=== PATIENT | female | born 2000 | race Caucasian/White ===

== ENCOUNTER 2018-07-26 18:47 | Emergency (ER) | payer SELFPAY ==
[~2018-07-26] VITALS: Ht 162.6 cm; Wt 149.8 kg
[2018-07-26] MEDS ORDERED: ACETAMINOPHEN 500 MG TABLET PO ONE (19:30)
[2018-07-26] MEDS ORDERED: IBUPROFEN 200 MG TABLET PO ONE (19:30)
[2018-07-26] MEDS ORDERED: IBUPROFEN 200 MG TABLET ONE (19:38)
[2018-07-26] MEDS ORDERED: ACETAMINOPHEN 500 MG TABLET ONE (19:38)
[2018-07-26 19:43] LABS: BASOPHILS # (AUTO) 0.07 x10^3/uL (0-0.3); BASOPHILS % (AUTO) 1 % (0-1); EOSINOPHILS % (AUTO) 1 % (1-7); LYMPHOCYTES # (AUTO) 1.97 x10^3/uL (1-6.1); LYMPHOCYTES % (AUTO) 23 % (22-44); MD NO; MEAN CORPUSCULAR HEMOGLOBIN 27.9 pg (27.0-34.8); MEAN CORPUSCULAR HGB CONC 33.4 g/dL (32.4-35.8); MEAN CORPUSCULAR VOLUME 83.7 fL (80-100); MEAN PLATELET VOLUME 9.1 fL (7.4-10.4); MONOCYTES # (AUTO) 0.63 x10^3/uL (0-1.4); MONOCYTES % (AUTO) 7 % (2-9); NEUTROPHILS # (AUTO) 5.88 x10^3/uL (1.8-8.0); NEUTROPHILS % (AUTO) 68 % (42-75); PLATELET COUNT 224 x10^3/uL (130-400); RED BLOOD COUNT 4.76 x10^6/uL (3.82-5.3); RED CELL DISTRIBUTION WIDTH 12.9 % (9.6-15.2)
[2018-07-26 19:52] LABS: ALANINE AMINOTRANSFERASE 43 U/L (12-78); ALBUMIN 3.2 g/dL (3.4-5.0); ANION GAP 9 mmol/L (5-15); CHLORIDE 111 mmol/L (98-107)
[2018-07-26 19:55] LABS: ALKALINE PHOSPHATASE 89 U/L (45-117); BILIRUBIN,TOTAL 0.3 mg/dL (0.2-1.0); TOTAL PROTEIN 7.5 g/dL (6.4-8.2)
[2018-07-26 20:12] LABS: HCG UR SG 1.027 (1.003-1.030)
[2018-07-26] MEDS ORDERED: OMNIPAQUE 350 MG/ML, 100ML BOTTLE ONE (20:31)
[2018-07-26 20:56] VITALS: BP 135/74
== END 2018-07-26 21:30 | disposition home or self-care (01) ==
LOC: ED 21:05
DX: G89.11 Acute pain due to trauma (principal); R10.13 Epigastric pain; F17.200 Nicotine dependence, unspecified, uncomplicated; Y04.8XXA Assault by other bodily force, initial encounter; Y93.89 Activity, other specified; Y92.89 Other specified places as the place of occurrence of the external cause; Y99.8 Other external cause status
CPT/HCPCS: 36415; 71045; 74177; 80053; 81025; 85025; 99285; Q9967

== ENCOUNTER 2019-01-23 11:57 | Emergency (ER) | payer MEDICAID, OTHER ==
[~2019-01-23] VITALS: Ht 162.6 cm; Wt 152.0 kg
[2019-01-23 12:32] VITALS: BP 132/78
[2019-01-23 13:04] LABS: RAPID INFLUENZA A Negative (Negative); RAPID INFLUENZA B Negative (Negative)
--- NOTE | 2019-01-23 13:55 | NUR ---
Patient/Caregiver given discharge instructions and they have confirmed that they understand the instructions. Patient ambulatory with steady gait. pt left with all personal belongings.
== END 2019-01-23 13:58 | disposition home or self-care (01) ==
LOC: ED 13:25
DX: J02.0 Streptococcal pharyngitis (principal); H92.03 Otalgia, bilateral
CPT/HCPCS: 71046; 87400; 87880; 99284

== ENCOUNTER 2019-07-24 23:11 | Emergency (ER) | payer MEDICAID ==
[~2019-07-24] VITALS: Ht 162.6 cm; Wt 130.0 kg
--- NOTE | 2019-07-24 23:15 | NUR ---
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
--- NOTE | 2019-07-24 23:19 | NUR ---
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
--- NOTE | 2019-07-24 23:23 | NUR ---
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
--- NOTE | 2019-07-25 00:15 | NUR ---
PT WITH IV STARTED BLOOD TO LAB AND PT AWARE OF NEED FOR URINE.
[2019-07-25] MEDS ORDERED: DIPHENHYDRAMINE 50 MG/ML, 1ML IVPush ONE (00:30)
[2019-07-25] MEDS ORDERED: SODIUM CHLORIDE FLUSH 10ML SYR IVF ONE (00:30)
[2019-07-25] MEDS ORDERED: PROCHLORPERAZINE 5 MG/ML, 2ML IVPush ONE (00:30)
[2019-07-25] MEDS ORDERED: KETOROLAC 30 MG/1 ML IVPush ONE (00:30)
--- NOTE | 2019-07-25 00:30 | NUR ---
PT MEDICATED ORDERED AND AWAITING C-XRAY AND CT SCAN.
[2019-07-25] MEDS ORDERED: KETOROLAC 30 MG/1 ML ONE (00:40)
[2019-07-25] MEDS ORDERED: DIPHENHYDRAMINE 50 MG/ML, 1ML ONE (00:40)
[2019-07-25] MEDS ORDERED: PROCHLORPERAZINE 5 MG/ML, 2ML ONE (00:40)
[2019-07-25 00:42] LABS: BASOPHILS # (AUTO) 0.05 x10^3/uL (0-0.3); BASOPHILS % (AUTO) 1 % (0-1); EOSINOPHILS # (AUTO) 0.06 x10^3/uL (0-0.8); EOSINOPHILS % (AUTO) 1 % (1-7); LYMPHOCYTES # (AUTO) 1.98 x10^3/uL (1-6.1); LYMPHOCYTES % (AUTO) 20 % (22-44); MD NO; MEAN CORPUSCULAR HEMOGLOBIN 30.3 pg (27.0-34.8); MEAN CORPUSCULAR HGB CONC 32.9 g/dL (32.4-35.8); MEAN CORPUSCULAR VOLUME 92.2 fL (80-100); MEAN PLATELET VOLUME 8.4 fL (7.4-10.4); MONOCYTES % (AUTO) 5 % (2-9); NEUTROPHILS # (AUTO) 7.32 x10^3/uL (1.8-8.0); NEUTROPHILS % (AUTO) 74 % (42-75); PLATELET COUNT 267 x10^3/uL (130-400); RED CELL DISTRIBUTION WIDTH 13.4 % (9.6-15.2)
[2019-07-25 00:56] LABS: ALANINE AMINOTRANSFERASE 36 U/L (12-78); ALBUMIN 3.4 g/dL (3.4-5.0); ANION GAP 7 mmol/L (5-15); CHLORIDE 111 mmol/L (98-107); CREATININE 0.73 mg/dL (0.55-1.02)
[2019-07-25 01:00] LABS: ALKALINE PHOSPHATASE 81 U/L (45-117); BILIRUBIN,TOTAL 0.6 mg/dL (0.2-1.0); TOTAL PROTEIN 7.4 g/dL (6.4-8.2)
--- NOTE | 2019-07-25 01:30 | NUR ---
PT BACK FROM CT SCAN AND AWAITING RESULTS. PT SLEEPING VSS
[2019-07-25 02:37] LABS: MICROSCOPIC NOT IND
[2019-07-25 02:38] LABS: CULTURE INDICATED? NO
[2019-07-25 03:20] VITALS: BP 131/81
[2019-07-25] MEDS ORDERED: OMNIPAQUE 350 MG/ML, 100ML BOTTLE ONE (04:55)
== END 2019-07-25 03:22 | disposition home or self-care (01) ==
LOC: ED 07-25 01:01
DX: J18.9 Pneumonia, unspecified organism (principal); R10.9 Unspecified abdominal pain; F17.200 Nicotine dependence, unspecified, uncomplicated
CPT/HCPCS: 36415; 71045; 71275; 74176; 80053; 81003; 83690; 84703; 85025; 93005; 96374; 96375; 99284; J0780; J1200; J1885; Q9967

== ENCOUNTER 2019-08-02 12:09 | Emergency (ER) | payer MEDICAID ==
[~2019-08-02] VITALS: Ht 162.6 cm; Wt 120.0 kg
[2019-08-02] MEDS ORDERED: ONDANSETRON 2MG/ML, 2ML ONE (12:54)
[2019-08-02] MEDS ORDERED: LORazepam 2 MG/ML, 1ML ONE (12:55)
[2019-08-02] MEDS ORDERED: MAALOX/HYOSCYAMINE/LIDOCAINE 45 ML BTL ONE (12:55)
[2019-08-02] MEDS ORDERED: SODIUM CHLORIDE FLUSH 10ML SYR IVF ONE (13:00)
[2019-08-02] MEDS ORDERED: ONDANSETRON 2MG/ML, 2ML IVPush ONE (13:00)
[2019-08-02] MEDS ORDERED: LORazepam 2 MG/ML, 1ML IVPush ONE (13:00)
[2019-08-02] MEDS ORDERED: MAALOX/HYOSCYAMINE/LIDOCAINE 45 ML BTL PO ONE (13:00)
[2019-08-02] MEDS ORDERED: SODIUM CHLORIDE 0.9% 1,000ML IVBOLUS ONE (13:00)
--- NOTE | 2019-08-02 13:00 | NUR ---
PT WHEELED BACK FROM TRIAGE. CRYING, SHOUTING & CARRYING ON. PT THEN BEGAN SHOUTING/SWEARING AT STAFF & THROWING BELONGINGS. MULT STAFF MEMEBERS C SECURITY AT BS. ATTEMPTED TO REASON C PT, AND EXPLAIN PROCESS OF BEING REMOVED FROM PREMISIS IF BEHAVIOR CONTINUES. PT AMBUALTORY TO RESTROOM, REFUSING TO COME OUT AFTER SEVERAL MINUTES. SECURITY UNLOCKED DOOR, PT REFUSING TO GO BACK TO ROOM. ESCORTED BACK TO ROOM. AGAIN EXPLAINED IF BEHAVIOR DOESNT IMPROVE SHE WILL BE ESCORTED OUT OF ER. PT THEN CALMED DOWN. ALLOWED THIS RN TO START IV, MEDS PER MAR. & TAKEN TO U/S.
--- NOTE | 2019-08-02 13:25 | NUR ---
MEDS PER MAR. TO U/S.
[2019-08-02 13:29] LABS: BASOPHILS # (AUTO) 0.06 x10^3/uL (0-0.3); BASOPHILS % (AUTO) 1 % (0-1); EOSINOPHILS % (AUTO) 1 % (1-7); LYMPHOCYTES # (AUTO) 2.28 x10^3/uL (1-6.1); LYMPHOCYTES % (AUTO) 27 % (22-44); MD NO; MEAN CORPUSCULAR HEMOGLOBIN 30.4 pg (27.0-34.8); MEAN CORPUSCULAR HGB CONC 33.4 g/dL (32.4-35.8); MEAN CORPUSCULAR VOLUME 90.9 fL (80-100); MEAN PLATELET VOLUME 8.2 fL (7.4-10.4); MONOCYTES # (AUTO) 0.55 x10^3/uL (0-1.4); MONOCYTES % (AUTO) 7 % (2-9); NEUTROPHILS # (AUTO) 5.38 x10^3/uL (1.8-8.0); NEUTROPHILS % (AUTO) 64 % (42-75); PLATELET COUNT 272 x10^3/uL (130-400); RED BLOOD COUNT 4.52 x10^6/uL (3.82-5.3); RED CELL DISTRIBUTION WIDTH 13.4 % (9.6-15.2)
[2019-08-02 13:38] LABS: ALANINE AMINOTRANSFERASE 46 U/L (12-78); ALBUMIN 3.6 g/dL (3.4-5.0); ANION GAP 8 mmol/L (5-15); CALCIUM 8.8 mg/dL (8.5-10.1); CHLORIDE 111 mmol/L (98-107); CREATININE 0.71 mg/dL (0.55-1.02)
[2019-08-02 13:43] LABS: ALKALINE PHOSPHATASE 88 U/L (45-117); BILIRUBIN,TOTAL 0.7 mg/dL (0.2-1.0); TOTAL PROTEIN 7.8 g/dL (6.4-8.2)
[2019-08-02 16:54] VITALS: BP 134/56
== END 2019-08-02 17:12 | disposition home or self-care (01) ==
LOC: ED 16:24
DX: O99.611 Diseases of the digestive system complicating pregnancy, first trimester (principal); O99.341 Other mental disorders complicating pregnancy, first trimester; F41.1 Generalized anxiety disorder; R10.13 Epigastric pain; O21.9 Vomiting of pregnancy, unspecified; Z3A.01 Less than 8 weeks gestation of pregnancy
CPT/HCPCS: 36415; 76700; 76830; 80053; 83690; 84702; 85025; 86901; 96361; 96374; 96375; 99284; J2060; J2405; J7030

== ENCOUNTER 2019-09-19 12:55 | Emergency (ER) | payer MEDICAID ==
[~2019-09-19] VITALS: Ht 162.6 cm; Wt 130.0 kg
[2019-09-19 13:14] VITALS: BP 111/74
--- NOTE | 2019-09-19 15:00 | NUR ---
NOT IN LOBBY AT THIS TIME
--- NOTE | 2019-09-19 15:15 | NUR ---
NOT IN LOBBY AT THIS TIME
--- NOTE | 2019-09-19 15:34 | NUR ---
NOT IN LOBBY AT THIS TIME
== END 2019-09-19 15:46 | disposition left against medical advice (07) ==
LOC: ED 15:30
DX: R42 Dizziness and giddiness (principal); Z53.21 Procedure and treatment not carried out due to patient leaving prior to being seen by health care provider

== ENCOUNTER 2019-10-28 03:17 | Emergency (ER) | payer MEDICAID ==
[~2019-10-28] VITALS: Ht 170.2 cm; Wt 134.0 kg
--- NOTE | 2019-10-28 03:20 | NUR ---
PT REPORTS EPIGASTRIC PAIN STARTING EARLIER TONIGHT WITH X2 EPISODES OF VOMITING, PT DENIES OTHER C/O AT THIS TIME. PT REPORTS BEING 17 WEEKS 4 PARA2. PT REPORTS HX OF GASTRIC ULCERS, REPORTS TAKING PEPCID AROUND [id number], GIVEN ZOFRAN 4MG EN ROUTE BY EMS. BS 76 PER EMS. PT CONNECTED TO MONITORING, CALL LIGHT WITHIN REACH, ALL SAFETY MEASURES IN PLACE. FAMILY AT BEDSIDE FOR SUPPORT.
[2019-10-28] MEDS ORDERED: MAALOX/HYOSCYAMINE/LIDOCAINE 45 ML BTL PO ONE (03:30)
[2019-10-28] MEDS ORDERED: MAALOX/HYOSCYAMINE/LIDOCAINE 45 ML BTL ONE (03:31)
[2019-10-28] MEDS ORDERED: ACETAMINOPHEN 325 MG TABLET PO ONE (04:00)
[2019-10-28] MEDS ORDERED: DIPHENHYDRAMINE 50 MG CAPSULE PO STA (04:00)
[2019-10-28] MEDS ORDERED: ACETAMINOPHEN 325 MG TABLET ONE (04:03)
[2019-10-28] MEDS ORDERED: DIPHENHYDRAMINE 25 MG CAPSULE ONE (04:04)
[2019-10-28 04:07] LABS: BASOPHILS # (AUTO) 0.05 x10^3/uL (0-0.1); BASOPHILS % (AUTO) 1 % (0-1); EOSINOPHILS # (AUTO) 0.06 x10^3/uL (0-0.4); EOSINOPHILS % (AUTO) 1 % (1-7); LYMPHOCYTES # (AUTO) 2.45 x10^3/uL (1-3.4); LYMPHOCYTES % (AUTO) 27 % (22-44); MD NO; MEAN CORPUSCULAR HEMOGLOBIN 28.4 pg (27.0-34.8); MEAN CORPUSCULAR HGB CONC 33.7 g/dL (32.4-35.8); MEAN CORPUSCULAR VOLUME 84.4 fL (80-100); MEAN PLATELET VOLUME 8.9 fL (7.4-10.4); MONOCYTES # (AUTO) 0.41 x10^3/uL (0.2-0.8); MONOCYTES % (AUTO) 5 % (2-9); NEUTROPHILS # (AUTO) 6.02 x10^3/uL (1.8-6.8); NEUTROPHILS % (AUTO) 67 % (42-75); PLATELET COUNT 184 x10^3/uL (130-400); RED CELL DISTRIBUTION WIDTH 13.3 % (9.6-15.2)
--- NOTE | 2019-10-28 04:10 | NUR ---
Pt alert and sitting up on gurney. Pt reports some improvement after GI cocktail but reports continued stomach cramping. Pt being medicated with benadryl and tylenol by AZEB Chapa Assumed care from AZEB Chapa
--- NOTE | 2019-10-28 04:10 | NUR ---
REPORT GIVEN TO AZEB EUGENE
--- NOTE | 2019-10-28 04:10 | NUR ---
PT MEDICATED PER MAR, LABS DRAWN.
[2019-10-28 04:15] LABS: ALANINE AMINOTRANSFERASE 12 U/L (12-78); ALBUMIN 2.7 g/dL (3.4-5.0); ANION GAP 9 mmol/L (5-15); CALCIUM 8.7 mg/dL (8.5-10.1); CHLORIDE 109 mmol/L (98-107); CREATININE 0.56 mg/dL (0.55-1.02)
[2019-10-28 04:17] LABS: ALKALINE PHOSPHATASE 64 U/L (45-117); BILIRUBIN,TOTAL 0.6 mg/dL (0.2-1.0); TOTAL PROTEIN 6.8 g/dL (6.4-8.2)
--- NOTE | 2019-10-28 04:17 | NUR ---
Pt noted to be 78% RA while dozing off. Pt awakened. Pt reports she does have sleep apnea. Pt placed on 2.L NC for sleeping. Addendum: 10/28/19 at 0417 by MRICH 2.5L
--- NOTE | 2019-10-28 05:09 | NUR ---
PT d/c'd to self care. Pt awake, alert and oriented. NAD. Education provided on prescriptions, home care, follow-up and S/Sx to return. Pt VU. Pt ambulated out of ER.
[2019-10-28 05:10] VITALS: BP 119/47
== END 2019-10-28 05:12 | disposition home or self-care (01) ==
LOC: ED 04:39
DX: K29.00 Acute gastritis without bleeding (principal); R11.2 Nausea with vomiting, unspecified; F17.210 Nicotine dependence, cigarettes, uncomplicated
CPT/HCPCS: 36415; 80053; 83690; 85025; 93005; 99284; 99406

== ENCOUNTER 2019-11-22 15:44 | Emergency (ER) | payer MEDICAID ==
[~2019-11-22] VITALS: Ht 162.6 cm; Wt 132.7 kg
--- NOTE | 2019-11-22 16:17 | NUR ---
Pt presents to ed with CP x15 min today and lower abdominal cramping x2-3 days when pt needs to urinate and following urination. Pt reports hx of acid reflux, which she experiences symptoms from daily. Relief with home medication. Pt ambulates well to bathroom for UA sample. Back to bed. ERMD at bedside for assessment. Side rail up, call light in reach. Partner at bedside.
--- NOTE | 2019-11-22 16:19 | NUR ---
Pt 22 weeks with 4th . Pt reports receiving OB care. OB instructing pt to wean off from cigarettes. Education from RN and ERMD regarding smoking and smoking while in particular.
[2019-11-22 16:48] LABS: CULTURE INDICATED? YES; MICROSCOPIC INDICATED
[2019-11-22 16:54] LABS: BASOPHILS # (AUTO) 0.12 x10^3/uL (0-0.1); BASOPHILS % (AUTO) 2 % (0-1); EOSINOPHILS # (AUTO) 0.08 x10^3/uL (0-0.4); EOSINOPHILS % (AUTO) 1 % (1-7); LYMPHOCYTES # (AUTO) 1.87 x10^3/uL (1-3.4); LYMPHOCYTES % (AUTO) 25 % (22-44); MD NO; MEAN CORPUSCULAR HEMOGLOBIN 28.4 pg (27.0-34.8); MEAN CORPUSCULAR HGB CONC 33.7 g/dL (32.4-35.8); MEAN CORPUSCULAR VOLUME 84.4 fL (80-100); MEAN PLATELET VOLUME 8.7 fL (7.4-10.4); MONOCYTES # (AUTO) 0.46 x10^3/uL (0.2-0.8); MONOCYTES % (AUTO) 6 % (2-9); NEUTROPHILS # (AUTO) 4.95 x10^3/uL (1.8-6.8); NEUTROPHILS % (AUTO) 66 % (42-75); PLATELET COUNT 178 x10^3/uL (130-400); RED BLOOD COUNT 4.13 x10^6/uL (3.82-5.3); RED CELL DISTRIBUTION WIDTH 14.1 % (9.6-15.2)
--- NOTE | 2019-11-22 17:02 | NUR ---
PT SITTING UP WATCHING TELEVISION, CUDDLING WITH PARTNER IN THE BED. NAD NOTED AT THIS TIME. SIDE RAIL UP, CALL LIGHT IN REACH.
[2019-11-22 17:03] LABS: ALBUMIN 2.6 g/dL (3.4-5.0); ANION GAP 10 mmol/L (5-15); CALCIUM 8.4 mg/dL (8.5-10.1); CHLORIDE 109 mmol/L (98-107); CREATININE 0.47 mg/dL (0.55-1.02)
[2019-11-22 17:07] LABS: TROPONIN I < 0.015 ng/mL (0.000-0.045)
[2019-11-22 17:20] VITALS: BP 132/73
--- NOTE | 2019-11-22 17:57 | NUR ---
pt verbalizes understanding of dc. Agrees with poc to check with l&d, who have been called.
== END 2019-11-22 18:00 | disposition home or self-care (01) ==
LOC: ED 16:40
DX: O26.892 Other specified pregnancy related conditions, second trimester (principal); O99.332 Smoking (tobacco) complicating pregnancy, second trimester; K21.9 Gastro-esophageal reflux disease without esophagitis; E86.0 Dehydration; R07.89 Other chest pain; R10.32 Left lower quadrant pain; R10.31 Right lower quadrant pain; Z3A.22 22 weeks gestation of pregnancy
CPT/HCPCS: 36415; 80048; 81001; 82040; 84484; 85025; 85379; 87086; 87147; 93005; 99284

== ENCOUNTER 2019-11-22 18:05 | Outpatient (CLI) | payer MEDICAID ==
[2019-11-26] MEDS ORDERED: BUPIVACAINE 0.25% ONE (09:15)
== END 2019-11-22 23:59 | disposition home or self-care (01) ==
LOC: LDOP 18:05
PROVIDERS: ATTEND Obstetrics & Gynecology Female Pelvic Medicine and Reconstructive Surgery
DX: Z02.9 Encounter for administrative examinations, unspecified (principal)

== ENCOUNTER 2019-11-30 04:15 | Emergency (ER) | payer MEDICAID ==
[~2019-11-30] VITALS: Ht 162.6 cm; Wt 132.2 kg
[2019-11-30 04:17] VITALS: BP 13/75
== END 2019-11-30 04:36 | disposition left against medical advice (07) ==
LOC: ED 04:30
DX: R10.9 Unspecified abdominal pain (principal); R11.10 Vomiting, unspecified; Z53.21 Procedure and treatment not carried out due to patient leaving prior to being seen by health care provider

== ENCOUNTER 2019-11-30 04:36 | Outpatient (CLI) | payer MEDICAID ==
[~2019-11-30] VITALS: Ht 162.6 cm; Wt 132.2 kg
[2019-11-30 04:53] VITALS: BP 147/65
== END 2019-11-30 05:11 | disposition home or self-care (01) ==
LOC: LDOP 04:36
PROVIDERS: ATTEND Obstetrics & Gynecology Female Pelvic Medicine and Reconstructive Surgery
DX: O26.892 Other specified pregnancy related conditions, second trimester (principal); R10.9 Unspecified abdominal pain; Z3A.20 20 weeks gestation of pregnancy
CPT/HCPCS: 99211; G0463

== ENCOUNTER 2019-11-30 05:14 | Emergency (ER) | payer MEDICAID ==
[~2019-11-30] VITALS: Ht 162.6 cm; Wt 131.9 kg
[2019-11-30] MEDS ORDERED: SODIUM CHLORIDE 0.9% 1,000ML IVBOLUS ONE (05:30)
[2019-11-30] MEDS ORDERED: ONDANSETRON 2MG/ML, 2ML IVPush ONE (05:30)
[2019-11-30] MEDS ORDERED: FAMOTIDINE 20 MG/2 ML IVPush ONE (05:30)
[2019-11-30] MEDS ORDERED: SODIUM CHLORIDE FLUSH 10ML SYR IVF ONE (05:30)
[2019-11-30 05:53] LABS: CULTURE INDICATED? YES; MICROSCOPIC INDICATED
[2019-11-30] MEDS ORDERED: ONDANSETRON 2MG/ML, 2ML ONE (05:56)
[2019-11-30] MEDS ORDERED: FAMOTIDINE 20 MG/2 ML ONE (05:56)
[2019-11-30 06:05] LABS: BASOPHILS # (AUTO) 0.04 x10^3/uL (0-0.1); BASOPHILS % (AUTO) 0 % (0-1); EOSINOPHILS # (AUTO) 0.04 x10^3/uL (0-0.4); EOSINOPHILS % (AUTO) 0 % (1-7); LYMPHOCYTES % (AUTO) 11 % (22-44); MD NO; MEAN CORPUSCULAR HEMOGLOBIN 28.6 pg (27.0-34.8); MEAN CORPUSCULAR HGB CONC 33.5 g/dL (32.4-35.8); MEAN CORPUSCULAR VOLUME 85.5 fL (80-100); MEAN PLATELET VOLUME 9.1 fL (7.4-10.4); MONOCYTES % (AUTO) 5 % (2-9); NEUTROPHILS # (AUTO) 7.37 x10^3/uL (1.8-6.8); NEUTROPHILS % (AUTO) 83 % (42-75); PLATELET COUNT 164 x10^3/uL (130-400); RED BLOOD COUNT 4.43 x10^6/uL (3.82-5.3); RED CELL DISTRIBUTION WIDTH 13.9 % (9.6-15.2)
[2019-11-30 06:06] LABS: ALBUMIN 2.8 g/dL (3.4-5.0); ANION GAP 8 mmol/L (5-15); CALCIUM 8.4 mg/dL (8.5-10.1); CHLORIDE 110 mmol/L (98-107)
--- NOTE | 2019-11-30 06:20 | NUR ---
IV ESTABLISHED. PT MEDICATED PER EMAR. 5 RIGHTS ADDRESSED.
[2019-11-30 06:25] VITALS: BP 129/73
--- NOTE | 2019-11-30 06:50 | NUR ---
RECEIVED BEDSIDE REPORT FROM AZEB MADRID.
--- NOTE | 2019-11-30 06:58 | NUR ---
REPORT TO AZEB ADLER
--- NOTE | 2019-11-30 07:25 | NUR ---
Patient/Caregiver given discharge instructions and they have confirmed that they understand the instructions. Patient ambulatory with steady gait. PT LEFT WITH ALL PERSONAL BELONGINGS.
== END 2019-11-30 07:27 | disposition home or self-care (01) ==
LOC: ED 05:55
DX: O21.8 Other vomiting complicating pregnancy (principal); O99.612 Diseases of the digestive system complicating pregnancy, second trimester; K21.9 Gastro-esophageal reflux disease without esophagitis; Z3A.21 21 weeks gestation of pregnancy; Z88.0 Allergy status to penicillin
CPT/HCPCS: 36415; 80048; 81001; 82040; 83690; 85025; 87086; 87147; 96374; 96375; 99284; J2405; J3490; J7030